=== PATIENT | female | born 1965 | race Caucasian/White ===

== ENCOUNTER 2019-09-23 00:25 | Emergency (ER) | payer MEDICARE, OTHER ==
[~2019-09-23] VITALS: Ht 172.7 cm; Wt 63.6 kg
[2019-09-23] MEDS ORDERED: VALB80CA PO (00:40)
[2019-09-23] MEDS ORDERED: LORA10TA7 PO (00:40)
[2019-09-23] MEDS ORDERED: LORA-999 PO (00:40)
[2019-09-23] MEDS ORDERED: BENZ1TAB10 PO (00:40)
[2019-09-23] MEDS ORDERED: LITH300C3 PO (00:40)
[2019-09-23] MEDS ORDERED: FERR-89 PO (00:40)
[2019-09-23] MEDS ORDERED: PARO20TA24 PO (00:40)
[2019-09-23] MEDS ORDERED: MIDO5TAB29 PO (00:40)
[2019-09-23] MEDS ORDERED: TRAZ150 PO (00:40)
[2019-09-23] MEDS ORDERED: PERTUSS(ACELL),DIPH,TET VAC/PF 0.5 ML VIAL IM ONE (01:00)
[2019-09-23] MEDS ORDERED: AMOX TR/POT CLAV 875 MG/125 MG TABLET PO ONE (01:00)
[2019-09-23 01:44] VITALS: BP 119/71
== END 2019-09-23 01:53 | disposition home or self-care (01) ==
LOC: EMS 00:27
DX: S51.851A Open bite of right forearm, initial encounter (principal); F32.9 Major depressive disorder, single episode, unspecified; F20.9 Schizophrenia, unspecified; F17.210 Nicotine dependence, cigarettes, uncomplicated; W54.0XXA Bitten by dog, initial encounter; Y93.01 Activity, walking, marching and hiking; Y92.89 Other specified places as the place of occurrence of the external cause; Y99.8 Other external cause status
CPT/HCPCS: 90471; 90715; 99406

== ENCOUNTER 2022-06-23 17:08 | Emergency (ER) | payer MEDICARE, OTHER ==
[~2022-06-23] VITALS: Ht 172.7 cm; Wt 65.0 kg
[~2022-06-23 17:08] MED LIST: BENZ1TAB96 PO; FERR325T27 PO; LITH300C3 PO; LORA-999 PO; LORA10TA7 PO; MIDO5TAB29 PO; PARO-38 PO; TRAZ150T80 PO; VALB80CA PO
[2022-06-23 19:45] VITALS: BP 124/71
[2022-06-23] MEDS ORDERED: IBUP-2070 PO (19:48)
[2022-06-23] MEDS ORDERED: IBUPROFEN 600 MG TABLET PO ONE (20:00)
== END 2022-06-23 20:25 | disposition home or self-care (01) ==
LOC: EMS 17:08
DX: M25.561 Pain in right knee (principal); F32.A Depression, unspecified; F20.9 Schizophrenia, unspecified
CPT/HCPCS: 99283

== ENCOUNTER 2024-09-11 12:04 | Emergency (ER) | payer MEDICARE, OTHER ==
[~2024-09-11] VITALS: Ht 172.7 cm; Wt 77.3 kg
[~2024-09-11 12:04] MED LIST changes: +BENZ-247 PO; -BENZ1TAB96 PO; +IBUP-1492 PO
[2024-09-11 12:08] VITALS: TEMP 98.1
[2024-09-11] MEDS ORDERED: FERR325T23 PO (12:17)
[2024-09-11] MEDS ORDERED: POTA-92 PO (12:17)
[2024-09-11] MEDS ORDERED: CELE-146 PO (12:17)
[2024-09-11] MEDS ORDERED: FAMO20 PO ×2 (12:17→17:22)
[2024-09-11] MEDS ORDERED: MELA5TAB40 PO (12:17)
[2024-09-11] MEDS ORDERED: PARO30TA60 PO (12:17)
[2024-09-11] MEDS ORDERED: TRAZ-257 PO (12:17)
[2024-09-11] MEDS ORDERED: DOCU-412 PO (12:17)
[2024-09-11 14:26] LABS: BASOPHILS % (AUTO) 0.8 % (0.0-2.0); EOSINOPHILS % (AUTO) 3.6 % (1.0-6.0); HEMATOCRIT 36.2 % (36-46); HEMOGLOBIN 12.2 g/dL (12.0-16.0); LYMPHOCYTES # (AUTO) 2.4 K/uL (1.0-4.8); LYMPHOCYTES % (AUTO) 28.3 % (22.0-44.0); MEAN CORPUSCULAR HEMOGLOBIN 31.9 pg (26.0-34.0); MEAN CORPUSCULAR HGB CONC 33.8 G/dL (31.0-37.0); MEAN CORPUSCULAR VOLUME 94 fL (80-100); MONOCYTES # (AUTO) 0.7 K/uL (0.1-1.0); MONOCYTES % (AUTO) 8.1 % (2.0-9.0); NEUTROPHILS # (AUTO) 5.1 K/uL (1.8-7.7); NEUTROPHILS % (AUTO) 59.2 % (40.0-70.0); PLATELET COUNT (AUTO) 307 K/uL (150-450); RED BLOOD CELL COUNT(AUTO) 3.84 MIL/uL (4.00-5.20); WHITE BLOOD COUNT (AUTO) 8.6 K/uL (4.5-11.0)
[2024-09-11 14:40] LABS: ANION GAP 4 mmol/L (8-16); CARBON DIOXIDE 30 mmol/L (22-29); CHLORIDE 105 mmol/L (98-107); CREATININE 0.92 mg/dL (0.60-1.30); GLOMERULAR FILTR. RATE CALC > 60 mL/min (>60); GLUCOSE,RANDOM 93 mg/dL (70-110); LIPASE 42 U/L (16-77); POTASSIUM 4.1 mmol/L (3.5-5.1); SODIUM SERUM 139 mmol/L (136-145); UREA NITROGEN, BLOOD 14 mg/dL (7-18)
[2024-09-11 14:56] LABS: TROPONIN I-HIGH SENSITIVITY 4 ng/L (<51)
[2024-09-11 15:25] LABS: APPEARANCE,URINE CLEAR (CLEAR); BILIRUBIN,URINE NEGATIVE (NEGATIVE); COLOR,URINE LIGHT YELLOW (YELLOW); GLUCOSE, URINE (UA) NEGATIVE (NEGATIVE); KETONES,URINE NEGATIVE (NEGATIVE); LEUKOCYTE ESTERASE ,URINE NEGATIVE (NEGATIVE); NITRATE,URINE NEGATIVE (NEGATIVE); OCCULT BLOOD,URINE NEGATIVE (NEGATIVE); PH,URINE 5.5 (5.0-8.0); PROTEIN,URINE NEGATIVE (NEGATIVE); UROBILINOGEN,URINE <=1.0 mg/dL (<=1.0)
[2024-09-11 16:49] VITALS: BP 137/56; PULSE 74; RESP 16; O2SAT 98
== END 2024-09-11 17:32 | disposition home or self-care (01) ==
LOC: EMS 12:04
DX: R13.10 Dysphagia, unspecified (principal); F20.9 Schizophrenia, unspecified; F32.A Depression, unspecified; Z79.1 Long term (current) use of non-steroidal anti-inflammatories (NSAID); Z79.899 Other long term (current) drug therapy
CPT/HCPCS: 74018; 80048; 81003; 83690; 84484; 85025; 93005; 99285; 36415-L1; 36415-TC